=== PATIENT | female | born 1990 | race Caucasian/White ===

== ENCOUNTER 2017-07-25 14:01 | Emergency (ER) | payer OTHER ==
[2017-07-25 14:19] VITALS: O2SAT 98
--- NOTE | 2017-07-25 14:30 | ERPHSYRPT ---
- History of Present Illness Patient Subjective Stated Complaint: patient has allergic reaction to augmentin [facility] they gave her [facility] in same family but stated they did not think she would react to it, she stated woke up with coughing chest tight and hives on chest and face Triage Nursing Assessment: pt alert and orietnedx3, ambulates by self, gait steady, skin warm/hot dry and intact, hives on chest face and kneck, states tightnessi n chest and throat feels swelling, some wheezing bilateral on inspirations and expiration. no other abnormalities or issues noted Physician History: she stated woke up with coughing chest tight and hives on chest and face Timing/Duration: today Severity: moderate Associated Symptoms: denies symptoms Allergies/Adverse Reactions: amoxicillin [From Augmentin] Allergy (Verified 07/25/17 14:14) clavulanic acid [From Augmentin] Allergy (Verified 07/25/17 14:14) Hx Tetanus, Diphtheria Vaccination/Date Given: Yes Hx Influenza Vaccination/Date Given: No Hx Pneumococcal Vaccination/Date Given: No Immunizations Up to Date: Yes - Review of Systems Constitutional: No Symptoms Respiratory: Cough Cardiac: No Symptoms Abdominal/Gastrointestinal: No Symptoms Skin: Rash - Past Medical History Pertinent Past Medical History: No - Past Surgical History Past Surgical History: Yes Female Surgical History: Section - Social History Smoking Status: Never smoker Drug Use: none - Nursing Vital Signs Nursing Vital Signs: Initial Vital Signs Temperature 99.4 F 07/25/17 14:01 Pulse Rate 135 H 07/25/17 14:01 Respiratory Rate 22 07/25/17 14:01 Blood Pressure 140/83 07/25/17 14:01 O2 Sat by Pulse Oximetry 99 07/25/17 14:01 Pain Scale Pain Intensity 0 - Physical Exam General Appearance: no apparent distress Eye Exam: PERRL/EOMI Ears, Nose, Throat Exam: normal ENT inspection Neck Exam: normal inspection Respiratory Exam: normal breath sounds Cardiovascular Exam: regular rate/rhythm Neurologic Exam: alert, oriented x 3 Skin Exam: rash SpO2: 98 Oxygen Delivery: Room Air - Course Nursing assessment & vital signs reviewed: Yes Ordered Tests: Medication Summary Discontinued Medications Generic Name Dose Route Start Last Admin Trade Name Freq PRN Reason Stop Dose Admin Betamethasone Acet/Betameth SodPhos 12 mg 07/25/17 14:32 Celestone Soluspan 6mg/Ml IM 10/29/17 14:33 STAT ONE - Progress Progress: improved Counseled pt/family regarding: diagnosis, need for follow-up - Departure Time of Disposition: 14:33 Departure Disposition: Home Clinical Impression: Allergic reaction caused by a drug Qualifiers: Encounter type: initial encounter Qualified Code(s): T78.40XA - Allergy, unspecified, initial encounter Condition: Stable Critical Care Time: No Referrals: NAZ ARAIZA [Primary Care Provider] - Instructions: Adverse Drug Reaction -- Allergic Additional Instructions: ALLERGIC REACTION 1. There are several different reasons for the cause of an allergic reaction. If you are aware of a trigger, continue to avoid the problem. 2. If at any time you experience any of these signs or symptoms, you should seek medical attention immediately: A. Sudden onset of rash B. Wheezing C. Shortness of breath D. Thick tongue E. Dizziness 3. If you experience an allergic reaction and are treated in the emergency department, you should follow up with your family physician in order to determine how you will need to handle your allergy. Please stop taking Bactrim and Cipro both antibiotics. Put Cipro and Bactrim in your allergies medication list. Prescriptions: Methylprednisolone Packet [Medrol Dosepack] 4 mg PO UD #30 packet
[2017-07-25] MEDS ORDERED: Celestone Soluspan 6MG/ML IM ONE (14:32)
[2017-07-25] MEDS ORDERED: Celestone Soluspan 6MG/ML ONE (14:34)
[2017-07-25 15:04] VITALS: BP 132/88; PULSE 124
== END 2017-07-25 15:05 | disposition home or self-care (01) ==
LOC: ED 14:01
DX: T50.905A Adverse effect of unspecified drugs, medicaments and biological substances, initial encounter (principal)
CPT/HCPCS: 96372; 99284; J0702

== ENCOUNTER 2019-03-03 20:11 | Emergency (ER) | payer OTHER, SELFPAY ==
--- NOTE | 2019-03-03 20:39 | ERPHSYRPT ---
- History of Present Illness Time Seen by Provider: 03/03/19 20:35 Source: patient Physician History: PATIENT STATES SHE FELL OFF RUIZ BOARD ONTO OUTSTRETCH LEFT HAND COMPLAINS OF LEFT WRIST PAIN. PATIENT COMPLAINS OF PAIN WITH SWELLING. DENIES DEFORMITY OR BRUISING. DENIES ASSOCIATED HEAD, NECK OR BACK INJURY. Occurred: just prior to arrival Method of Injury: direct blow, fell Quality: constant Severity of Pain-Max: moderate Extremities Pain Location: wrist: left Modifying Factors: Improves With: movement Associated Symptoms: none Allergies/Adverse Reactions: amoxicillin [From Augmentin] Allergy (Verified 07/25/17 14:14) clavulanic acid [From Augmentin] Allergy (Verified 07/25/17 14:14) Sulfa (Sulfonamide Antibiotics) Allergy (Verified 03/03/19 20:32) Hx Tetanus, Diphtheria Vaccination/Date Given: Yes Hx Influenza Vaccination/Date Given: No Hx Pneumococcal Vaccination/Date Given: No - Review of Systems Constitutional: No Symptoms Musculoskeletal: Injury, Joint Pain, Joint Swelling Neurological: No Symptoms, Dizziness - Past Medical History Pertinent Past Medical History: No - Past Surgical History Past Surgical History: Yes Female Surgical History: Section - Social History Smoking Status: Never smoker Drug Use: none - Nursing Vital Signs Nursing Vital Signs: Initial Vital Signs Temperature 98.4 F 03/03/19 20:33 Pulse Rate 106 H 03/03/19 20:33 Respiratory Rate 18 03/03/19 20:33 Blood Pressure 135/87 03/03/19 20:33 O2 Sat by Pulse Oximetry 100 03/03/19 20:33 Pain Scale Pain Intensity 6 - Physical Exam General Appearance: no apparent distress Wrist Exam: limited ROM, soft tissue tenderness, swelling (DISTAL LEFT ULNAR OF WRIST, NEG SNUFF BOX TENDERNESS, NO ECCHYMOSIS OR CREPITUS) DTR - Upper Extremity Exam: bicep (R): 2+, bicep (L): 2+, tricep (R): 2+, tricep (L): 2+ Neuro/Tendon Exam: normal sensation Mental Status Exam: alert, oriented x 3 Skin Exam: normal color SpO2 Interpretation: normal SpO2: 98 - Radiology Exams Left Wrist X-ray Interpretation: Interpreted by me (R/O IMPACTED FRACTURE LEFT DISTAL RADIUS) Ordered Tests: Active Orders 24 hr Category Date Time Status Splint STAT Care 03/03/19 21:30 Ordered WRIST (MIN 3 VIEWS) Stat Exams 03/03/19 20:38 Taken Medication Summary Discontinued Medications Generic Name Dose Route Start Last Admin Trade Name Vargas PRN Reason Stop Dose Admin Acetaminophen/Codeine Phosphate 1 tab 03/03/19 21:30 Tylenol #3 Tablet PO 03/03/19 21:31 STAT ONE Acetaminophen/Codeine Phosphate 2 tab 03/03/19 21:31 Tylenol #3 Tablet PO 03/03/19 21:32 SENT HOME W/ PATIENT ONE - Progress Progress Note: 03/03/19 21:01 REFUSES ORAL ANALGESICS INITIALLY 03/03/19 21:23, TYLENOL #3 ORALLY 03/03/19 21:23, APPLICATION LEFT SHORT FOREARM ORTHOGLASS SPLINT 03/03/19 21:32 Counseled pt/family regarding: diagnosis, need for follow-up, rad results - Departure Departure Disposition: Home Clinical Impression: LEFT DISTAL RADIUM IMPACTED FRACTURE Condition: Stable Critical Care Time: No Referrals: NAZ ARAIZA [Primary Care Provider] - Additional Instructions: MAINTAIN ORTHOGLASS SPLINT TO LEFT FOREARM. APPLY ICE OVER BACK OF WRIST ICE EVERY 4 HOURS, 30 MINUTES FOR 48 HOURS WITH ELEVATION. TYLENOL #3 EVERY 6 HOURS FOR PAIN NEEDED. WILL CALL WITHIN 24 HOURS WITH RESULTS OF RADIOLOGY READING. Prescriptions: Codeine Phosphate/APAP #3 [Tylenol #3 Tablet] 1 tab PO Q6HPRN PRN #15 tablet PRN Reason: Pain
[2019-03-03] MEDS ORDERED: Tylenol #3 Tablet PO ONE ×2 (21:30→21:31)
[2019-03-03] MEDS ORDERED: Tylenol #3 Tablet ONE ×2 (21:37→21:38)
[2019-03-03 22:04] VITALS: BP 123/77; PULSE 86; O2SAT 99
--- NOTE | 2019-03-03 22:40 | XRAY ---
Indication: Pain following fall. Comparison: None 3 views of the left wrist demonstrates nondisplaced distal radial cortical fracture posteriorly with mild soft tissue swelling. No other bony, articular, or soft tissue abnormalities.
== END 2019-03-03 22:09 | disposition home or self-care (01) ==
LOC: ED 20:11
DX: S52.502A Unspecified fracture of the lower end of left radius, initial encounter for closed fracture (principal); W17.89XA Other fall from one level to another, initial encounter
CPT/HCPCS: 29126; 73110; 99283; 99284; A9270-GY